=== PATIENT | male | born 1980 | race Caucasian/White ===

== ENCOUNTER → 2017-02-22 | Outpatient (CLI) | payer OTHER, MEDICAID ==
--- NOTE | 2017-02-22 15:10 | REP ---
Clinical: Pain. Technique: AP, lateral, bilateral oblique views of the right hand. Comparison: 06/23/2014. Findings: Old healed fifth metacarpal bone fracture identified. Remainder examination appears normal. No acute fracture or dislocation no subcutaneous emphysema or radiodense foreign body. No soft tissue mass is appreciated, and eighth the area of mass corresponds to the base of the fifth metatarsal bone, and may be related to subtle deformity from old fracture. Impression: 1. No acute fracture or dislocation. 2. Old boxers fracture. 3. No soft tissue mass is appreciated, and eighth the area of mass corresponds to the base of the fifth metatarsal bone, and may be related to subtle bony deformity from old fracture.
== END ==
LOC: M CLY 14:36
PROVIDERS: ATTEND Nurse Practitioner
DX: M79.641 Pain in right hand (principal)

== ENCOUNTER 2018-10-29 12:32 | Emergency (ER) | payer MEDICAID, OTHER ==
[~2018-10-29] VITALS: Ht 182.9 cm; Wt 70.5 kg
[2018-10-29] MEDS ORDERED: QUET5TAB PO (12:47)
[2018-10-29] MEDS ORDERED: SUBO12MI PO (12:47)
[2018-10-29 13:07] LABS: HEMATOCRIT 41.2 % (42.0-52.0); MEAN CORPUSCULAR HEMOGLOBIN 30.8 pg (27.0-33.0); MEAN CORPUSCULAR VOLUME 90.5 fl (80.0-96.0); PLATELET COUNT, AUTOMATED 231 10^3/uL (150-450); RED BLOOD COUNT 4.55 10^6/uL (4.30-6.10); WHITE BLOOD COUNT 7.6 10^3/uL (4.0-10.0)
[2018-10-29 13:43] LABS: ACETAMINOPHEN LEVEL < 2.0 UG/ML (10.0-30.0); ALBUMIN 4.3 GM/DL (3.2-5.2); ALT/SGPT 20 U/L (12-78); BILIRUBIN,DIRECT 0.1 MG/DL (0.0-0.2); BILIRUBIN,TOTAL 0.4 MG/DL (0.2-1.0); BLOOD UREA NITROGEN 12 MG/DL (7-18); CALCIUM LEVEL 8.8 MG/DL (8.5-10.1); CARBON DIOXIDE LEVEL 27 MEQ/L (21-32); CHLORIDE LEVEL 108 MEQ/L (98-107); CREATININE FOR GFR 0.97 MG/DL (0.70-1.30); ETHYL ALCOHOL (ETHANOL) 0.005 % (0.000-0.010); GLOMERULAR FILTRATION RATE > 60.0 (>60); GLUCOSE, FASTING 95 MG/DL (70-100); POTASSIUM SERUM 4.1 MEQ/L (3.5-5.1); SALICYLATE LEVEL 4.6 MG/DL (5.0-30.0); SODIUM LEVEL 141 MEQ/L (136-145); TOTAL PROTEIN 7.1 GM/DL (6.4-8.2)
[2018-10-29 14:41] LABS: AMPHETAMINES LEVEL URINE NEGATIVE (NEGATIVE); BARBITURATES URINE NEGATIVE (NEGATIVE); BENZODIAZEPINES URINE NEGATIVE (NEGATIVE); CANNABINOIDS URINE POSITIVE (NEGATIVE); COCAINE METABOLITE URINE NEGATIVE (NEGATIVE); METHADONE URINE NEGATIVE (NEGATIVE); OPIATES URINE NEGATIVE (NEGATIVE); PHENCYCLIDINE URINE NEGATIVE (NEGATIVE)
[2018-10-29] MEDS ORDERED: LORazepam 2 MG/ML VIAL (J2060) IM STA (16:45)
[2018-10-29] MEDS ORDERED: HALOPERIDOL 5 MG/ML VIAL (J1630) IM STA (16:45)
[2018-10-29] MEDS ORDERED: HALOPERIDOL 5 MG/ML VIAL (J1630) As Ordered ONE (16:47)
--- NOTE | 2018-10-29 21:21 | ECGEPIP ---
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
[2018-10-29] MEDS ORDERED: QUEtiapine FUMARATE 100 MG TAB PO ONE (23:30)
[2018-10-30 12:11] VITALS: BP 128/54
[2018-10-30] MEDS ORDERED: BUPRENORPHINE/NALOXONE 8-2MG SUBLINGUAL TABLET(SUBOXONE) SL ONE (12:30)
== END 2018-10-30 13:16 ==
LOC: M ED 12:32
DX: R45.851 Suicidal ideations (principal); F31.9 Bipolar disorder, unspecified
CPT/HCPCS: 80048; 80076; 80307; 84443; 85027; 93005; 99285; G0480; J1630; J2060

== ENCOUNTER → 2020-04-20 | Outpatient (CLI) | payer OTHER ==
[~2020-04-20] MED LIST: QUET5TAB PO; SUBO12MI PO
[2020-04-20 13:35] LABS: HEMATOCRIT 45.1 % (42.0-52.0); HEMOGLOBIN 15.1 g/dl (13.5-17.5); MEAN CORPUSCULAR HEMOGLOBIN 29.9 pg (27.0-33.0); MEAN CORPUSCULAR HGB CONC 33.5 g/dl (32.0-36.5); MEAN CORPUSCULAR VOLUME 89.3 fl (80.0-96.0); PLATELET COUNT, AUTOMATED 238 10^3/uL (150-450); RED BLOOD COUNT 5.05 10^6/uL (4.30-6.10); WHITE BLOOD COUNT 5.8 10^3/uL (4.0-10.0)
[2020-04-20 14:07] LABS: ALBUMIN 4.3 GM/DL (3.2-5.2); ALT/SGPT 26 U/L (12-78); BILIRUBIN,TOTAL 0.4 MG/DL (0.2-1.0); BLOOD UREA NITROGEN 11 MG/DL (7-18); CALCIUM LEVEL 9.7 MG/DL (8.5-10.1); CARBON DIOXIDE LEVEL 33 MEQ/L (21-32); CHLORIDE LEVEL 104 MEQ/L (98-107); CREATININE FOR GFR 1.17 MG/DL (0.70-1.30); GLOMERULAR FILTRATION RATE > 60.0 (>60); GLUCOSE, FASTING 77 MG/DL (70-100); POTASSIUM SERUM 4.6 MEQ/L (3.5-5.1); SODIUM LEVEL 139 MEQ/L (136-145); TOTAL PROTEIN 7.8 GM/DL (6.4-8.2)
--- NOTE | 2020-04-20 23:12 | ECGEPIP ---
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 Decreased heart rate compared with 10/29/2018. Electronically Signed on 04-20-2020 23:12:20 EDT by Sumit Valadez
[2020-04-21 10:58] LABS: HEPATITIS C VIRUS ABY INDEX 0.1 INDEX (<0.8)
[2020-04-21 10:59] LABS: HIV 1&2 SCREEN CENTAUR NEGATIVE (NEGATIVE)
== END ==
LOC: M LAB 12:13
PROVIDERS: ATTEND Family Medicine
DX: F11.20 Opioid dependence, uncomplicated (principal)

== ENCOUNTER 2021-03-11 22:00 | Emergency (ER) | payer OTHER ==
[~2021-03-11] VITALS: Ht 172.7 cm; Wt 74.5 kg
[~2021-03-11 22:00] MED LIST changes: +QUET50TA3 PO; -QUET5TAB PO
[2021-03-11 22:35] VITALS: BP 132/99
[2021-03-11 22:38] LABS: HEMATOCRIT 40.8 % (42.0-52.0); HEMOGLOBIN 13.7 g/dl (13.5-17.5); MEAN CORPUSCULAR HEMOGLOBIN 30.2 pg (27.0-33.0); MEAN CORPUSCULAR HGB CONC 33.6 g/dl (32.0-36.5); MEAN CORPUSCULAR VOLUME 89.9 fl (80.0-96.0); PLATELET COUNT, AUTOMATED 293 10^3/uL (150-450); RED BLOOD COUNT 4.54 10^6/uL (4.30-6.10); WHITE BLOOD COUNT 9.6 10^3/uL (4.0-10.0)
[2021-03-11 23:09] LABS: ACETAMINOPHEN LEVEL < 2.0 UG/ML (10.0-30.0); ALBUMIN 4.7 GM/DL (3.2-5.2); ALT/SGPT 25 U/L (12-78); BILIRUBIN,DIRECT 0.3 MG/DL (0.0-0.2); BLOOD UREA NITROGEN 22 MG/DL (7-18); CALCIUM LEVEL 10.3 MG/DL (8.5-10.1); CARBON DIOXIDE LEVEL 24 MEQ/L (21-32); CHLORIDE LEVEL 107 MEQ/L (98-107); CREATININE FOR GFR 1.48 MG/DL (0.70-1.30); ETHYL ALCOHOL (ETHANOL) < 0.003 % (0.000-0.010); GLOMERULAR FILTRATION RATE 56.6 (>60); GLUCOSE, FASTING 100 MG/DL (70-100); POTASSIUM SERUM 4.2 MEQ/L (3.5-5.1); SALICYLATE LEVEL 2.8 MG/DL (5.0-30.0); SODIUM LEVEL 140 MEQ/L (136-145); TOTAL PROTEIN 8.1 GM/DL (6.4-8.2)
[2021-03-12 01:41] LABS: AMPHETAMINES LEVEL URINE POSITIVE (NEGATIVE); BARBITURATES URINE NEGATIVE (NEGATIVE); BENZODIAZEPINES URINE NEGATIVE (NEGATIVE); CANNABINOIDS URINE POSITIVE (NEGATIVE); COCAINE METABOLITE URINE NEGATIVE (NEGATIVE); METHADONE URINE POSITIVE (NEGATIVE); OPIATES URINE POSITIVE (NEGATIVE); PHENCYCLIDINE URINE NEGATIVE (NEGATIVE)
== END 2021-03-12 02:20 | disposition home or self-care (01) ==
LOC: M ED 22:00
DX: F43.0 Acute stress reaction (principal); F25.9 Schizoaffective disorder, unspecified; Z79.899 Other long term (current) drug therapy

== ENCOUNTER 2024-08-11 03:34 | Emergency (ER) | payer MEDICAID, OTHER ==
[~2024-08-11 03:34] MED LIST changes: -QUET50TA3 PO; +QUET50TA4 PO
[2024-08-11 03:48] VITALS: TEMP 96.6
[2024-08-11 04:55] VITALS: BP 133/85; O2SAT 97
[2024-08-11 06:15] LABS: HEMATOCRIT 36.2 % (42.0-52.0); HEMOGLOBIN 12.3 g/dl (13.5-17.5); MEAN CORPUSCULAR HEMOGLOBIN 29.6 pg (27.0-33.0); PLATELET COUNT, AUTOMATED 292 10^3/uL (150-450); RED BLOOD COUNT 4.16 10^6/uL (4.30-6.10); WHITE BLOOD COUNT 11.7 10^3/uL (4.0-10.0)
[2024-08-11 06:46] LABS: ETHYL ALCOHOL (ETHANOL) 0.003 % (0.000-0.010)
[2024-08-11 06:48] LABS: ALBUMIN 4.1 G/DL (3.2-5.2); ALKALINE PHOSPHATASE 100 U/L (40-129); ALT/SGPT 47 U/L (7.0-40); AST/SGOT 32 U/L (<34); BILIRUBIN,DIRECT 0.3 MG/DL (<0.4); BILIRUBIN,TOTAL 0.8 MG/DL (0.3-1.2); BLOOD UREA NITROGEN 13 MG/DL (9-23); CARBON DIOXIDE LEVEL 29 MMOL/L (20-31); CHLORIDE LEVEL 106 MMOL/L (98-107); GLOMERULAR FILTRATION RATE > 60.0 (>60); GLUCOSE, FASTING 95 MG/DL (60-100); POTASSIUM SERUM 3.8 MMOL/L (3.5-5.1); SALICYLATE LEVEL < 3.0 MG/DL (<30); SODIUM LEVEL 141 MMOL/L (136-145); TOTAL PROTEIN 7.3 G/DL (5.7-8.2)
[2024-08-11 06:53] LABS: THYROID STIMULATING HORMONE 4.371 uIU/ML (0.55-4.78)
[2024-08-11 08:49] LABS: BENZODIAZEPINES URINE NEGATIVE (NEGATIVE)
[2024-08-11 08:50] LABS: BARBITURATES URINE NEGATIVE (NEGATIVE); COCAINE METABOLITE URINE NEGATIVE (NEGATIVE); OPIATES URINE NEGATIVE (NEGATIVE); PHENCYCLIDINE URINE NEGATIVE (NEGATIVE)
[2024-08-11 09:01] LABS: AMPHETAMINES LEVEL URINE POSITIVE (NEGATIVE); CANNABINOIDS URINE POSITIVE (NEGATIVE); METHADONE URINE POSITIVE (NEGATIVE)
[2024-08-11] MEDS: PRAZOSIN 1 MG CAP PO ONE (10:28)
== END 2024-08-11 10:34 | disposition home or self-care (01) ==
LOC: M ED 03:34
DX: F19.14 Other psychoactive substance abuse with psychoactive substance-induced mood disorder (principal); I45.81 Long QT syndrome; F10.10 Alcohol abuse, uncomplicated; F32.A Depression, unspecified; M54.50 Low back pain, unspecified; F31.9 Bipolar disorder, unspecified; Z88.6 Allergy status to analgesic agent; Z79.899 Other long term (current) drug therapy

== ENCOUNTER 2025-09-21 10:31 | Emergency (ER) | payer OTHER ==
[2025-09-21 10:33] VITALS: BP 130/94; TEMP 99.2; O2SAT 99
[2025-09-21] MEDS ORDERED: METH10CO3 PO (10:43)
[2025-09-22] MEDS ORDERED: CEPH500C PO (17:16)
== END 2025-09-21 11:51 | disposition left against medical advice (07) ==
LOC: M ED 10:31
DX: Z53.21 Procedure and treatment not carried out due to patient leaving prior to being seen by health care provider (principal)

== ENCOUNTER 2025-09-22 12:48 | Emergency (ER) | payer OTHER ==
[~2025-09-22] VITALS: Ht 182.9 cm; Wt 80.6 kg
[~2025-09-22 12:48] MED LIST changes: +METH10CO3 PO
[2025-09-22 13:03] VITALS: BP 141/100; TEMP 98.3; O2SAT 97
[2025-09-22 13:35] LABS: PLATELET COUNT, AUTOMATED 350 10^3/uL (150-450)
[2025-09-22 14:01] LABS: ETHYL ALCOHOL (ETHANOL) < 0.003 % (0.000-0.010)
[2025-09-22 14:02] LABS: SALICYLATE LEVEL < 3.0 MG/DL (<30)
[2025-09-22 14:03] LABS: ALT/SGPT 28 U/L (7.0-40); AST/SGOT 47 U/L (<34); CALCIUM LEVEL 10.2 MG/DL (8.5-10.1); CARBON DIOXIDE LEVEL 26 MMOL/L (20-31); CHLORIDE LEVEL 104 MMOL/L (98-107); CREATININE FOR GFR 1.26 MG/DL (0.70-1.30); GLOMERULAR FILTRATION RATE 72.6 (>60); POTASSIUM SERUM 3.7 MMOL/L (3.5-5.1); SODIUM LEVEL 140 MMOL/L (136-145)
[2025-09-22 14:36] LABS: BARBITURATES URINE NEGATIVE (NEGATIVE); BENZODIAZEPINES URINE NEGATIVE (NEGATIVE); OPIATES URINE NEGATIVE (NEGATIVE); PHENCYCLIDINE URINE NEGATIVE (NEGATIVE)
[2025-09-22 14:38] LABS: AMPHETAMINES LEVEL URINE POSITIVE (NEGATIVE); CANNABINOIDS URINE POSITIVE (NEGATIVE); COCAINE METABOLITE URINE POSITIVE (NEGATIVE); METHADONE URINE POSITIVE (NEGATIVE)
[2025-09-22] MEDS ORDERED: CEPH500C PO (17:16)
[2025-09-22] MEDS: CEPHALEXIN 500 MG CAP PO ONE (17:27)
[2025-09-23 01:33] LABS: HIV 1&2 SCREEN NEGATIVE (NEGATIVE)
== END 2025-09-22 17:30 | disposition home or self-care (01) ==
LOC: M ED 16:15
DX: F43.0 Acute stress reaction (principal); R22.31 Localized swelling, mass and lump, right upper limb; F32.A Depression, unspecified; F19.10 Other psychoactive substance abuse, uncomplicated; F10.10 Alcohol abuse, uncomplicated; Z88.6 Allergy status to analgesic agent; Z79.899 Other long term (current) drug therapy